=== PATIENT | male | born 1985 | race Caucasian/White ===

== ENCOUNTER 2021-03-27 21:50 | Emergency (ER) | payer SELFPAY ==
[~2021-03-27] VITALS: Ht 177.8 cm; Wt 77.0 kg
[2021-03-28] MEDS ORDERED: HALOPERIDOL LACTATE 5MG/ML VIAL IM SCH (00:30)
[2021-03-28] MEDS ORDERED: LORAZEPAM 2MG/ML CPJ IM SCH (00:30)
[2021-03-28 00:37] LABS: BASOPHILS % 0.4 % (0.0-2.0); EOSINOPHILS % 0.3 % (0.0-5.0); HEMATOCRIT. 38.6 % (42.0-52.0); LYMPHOCYTES % 18.3 % (20.0-50.0); MEAN CORPUSCULAR HEMOGLOBIN 30.7 pg (28.0-32.0); MONOCYTES % 7.3 % (2.0-8.0); NEUTROPHILS % 73.7 % (40.0-76.0); PLATELET 195 x1000/uL (130-400); RED BLOOD CELL COUNT 4.24 mill/uL (4.7-6.1); RED CELL DISTRIBUTION WIDTH 14.8 % (11.6-14.6)
[2021-03-28 00:47] LABS: CHLORIDE 109 mEq/L (98-107)
[2021-03-28 00:51] LABS: ETHANOL BLOOD < 10 mg/dL
[2021-03-28 01:42] LABS: CLARITY URINE CLEAR (CLEAR); COLOR URINE YELLOW (YELLOW); KETONES URINE NEGATIVE (NEGATIVE); LEUKOCYTE ESTERASE URINE NEGATIVE (NEGATIVE); NITRITE URINE NEGATIVE (NEGATIVE); OCCULT BLOOD URINE NEGATIVE (NEGATIVE); PH URINE 6.5 (4.5-8.0); PROTEIN URINE NEGATIVE (NEGATIVE); SPECIFIC GRAVITY URINE 1.016 (1.005-1.030); UROBILINOGEN URINE 0.2 E.U./dL (0.2-1.0)
[2021-03-28 02:00] LABS: CANNABINOID URINE SCREEN PRESUMTIVE POSITIVE (NEGATIVE)
[2021-03-28 02:01] LABS: *AMPHETAMINES SCREEN URINE PRESUMTIVE POSITIVE (NEGATIVE); *BARBITURATES SCREEN URINE NEGATIVE (NEGATIVE); *BENZODIAZEPINES SCREEN URINE NEGATIVE (NEGATIVE); METHADONE URINE SCREEN NEGATIVE (NEGATIVE); OPIATES URINE SCREEN NEGATIVE (NEGATIVE); PHENCYCLIDINE URINE SCREEN NEGATIVE (NEGATIVE)
[2021-03-28 02:02] LABS: *COCAINE SCREEN URINE NEGATIVE (NEGATIVE)
[2021-03-28 06:30] VITALS: BP 125/79
== END 2021-03-28 06:49 | disposition home or self-care (01) ==
LOC: ER 21:50 → EDBD 21:50 → ER 03-28 06:49
DX: G93.40 Encephalopathy, unspecified (principal); G92.9 Unspecified toxic encephalopathy; F20.9 Schizophrenia, unspecified
CPT/HCPCS: 36415; 70450; 80053; 80305; 80320; 81003; 82962; 84484; 85025; 93005; 96372; 99285; J1630; J2060; G0480